=== PATIENT | male | born 1980 | race Hispanic/Latino ===

== ENCOUNTER 2023-05-24 14:39 | Inpatient (IN) | payer SELFPAY ==
[2023-05-24] MEDS ORDERED: Sodium Bicarbonate 150 MEQ in Dextrose 5% in Water 1,000 ML IV SCH (15:30)
[2023-05-24 15:32] LABS: Hemoglobin 14.6 g/dL (13.5-17.5); Mean Corpuscular HGB CONC 34.8 g/dL (32.0-36.0); Mean Corpuscular Hemoglobin 33.6 pg (27.0-33.0); Mean Corpuscular Volume 96.8 fl (81.2-95.1); Mean Platelet Volume 10.4 fl (7.4-10.4); Platelet Count 347 10x3/uL (150-450); RBC Distribution Width 13.1 % (11.5-14.5); Red Blood Cell (RBC) Count 4.34 10x6/uL (4.32-5.72); White Blood Cell (WBC) Count 30.4 10x3/uL (3.5-10.5)
[2023-05-24 15:35] LABS: Actual Bicarbonate (HCO3v) 3.4 mEq/L (22-28); Base Excess -31.7 mEq/L (-2 - +2); Calcium, Ionized (venous) 1.29 mmol/L (1.16-1.32); Chloride (VBG) 104 mmol/L (98-106); Hematocrit-VBG 45 % (42.0-52.0); Hemoglobin (Hb) 15.3 g/dL (13.2-17.3); Potassium (VBG) 1.84 mmol/L (3.70-5.30); Puncture Site Other Site; Sodium 136 mmol/L (133-146); pH (venous) 6.761 (7.32-7.43)
[2023-05-24 15:45] LABS: ALT (SGPT) 177 U/L (8-55); AST (SGOT) 181 U/L (5-34); Albumin 3.7 g/dL (3.5-5.0); Alkaline Phosphatase 185 U/L (40-110); BUN (Urea Nitrogen) 18 mg/dL (8.9-20.6); Bilirubin, Total 0.5 mg/dL (0.2-1.2); Calc. Creatinine Clearance 0 mL/min (70-130); Calcium 8.1 mg/dL (7.8-10.44); Chloride 103 mmol/L (98-107); Estimated GFR 71; Globulin 4.4 g/dL (2.4-3.5); Lipase 989 U/L (8-78); Magnesium 2.2 mg/dL (1.6-2.6); Protein, Total 8.1 g/dL (6.0-8.3); Sodium 129 mmol/L (136-145)
[2023-05-24] MEDS ORDERED: Potassium Chloride 20 MEQ/100 ML PREMIX BAG ONE ×2 (15:47→16:31)
[2023-05-24 15:55] LABS: Carbon Dioxide Less than 8 mmol/L (22-29); Glucose 500 mg/dL (70-105); Potassium 1.8 mmol/L (3.5-5.1)
[2023-05-24 16:00] LABS: Band 14 % (5-11); Lymphocytes 5 % (21-51); Monocytes 19 % (0-10)
[2023-05-24 16:03] LABS: Anisocytosis SLIGHT = 6-15 cells (100X) (0-5/hpf); Neutrophil 62 % (42-75)
[2023-05-24 16:07] LABS: Platelet Adequacy Comment Appears Adequate; Toxic Granulation SLIGHT; Vacuoles SLIGHT
[2023-05-24 16:08] LABS: MDiff Complete? YES
[2023-05-24 16:21] LABS: Actual Bicarbonate (HCO3v) 4.4 mEq/L (22-28); Base Excess -29.9 mEq/L (-2 - +2); Calcium, Ionized (venous) 1.18 mmol/L (1.16-1.32); Chloride (VBG) 107 mmol/L (98-106); Hematocrit-VBG 42 % (42.0-52.0); Hemoglobin (Hb) 14.3 g/dL (13.2-17.3); Potassium (VBG) 1.63 mmol/L (3.70-5.30); Puncture Site Other Site; Sodium 135 mmol/L (133-146); pH (venous) 6.797 (7.32-7.43)
[2023-05-24] MEDS ORDERED: Magnesium 2 GM/50 ML BAG (IN WATER) ONE (16:32)
[2023-05-24 16:59] LABS: Actual Bicarbonate (HCO3a) 4.7 mEq/L (22-28); CO2 Tension 32.3 mmHg (35.0-45.0); Calcium, Ionized (arterial) 1.27 mmol/L (1.12-1.30); Carboxyhemoglobin (COHb) 0.3 gm% (0.0-3.0); Hematocrit-ABG 43 % (42.0-52.0); Hemoglobin (Hb) 14.6 g/dL (14.0-18.0); O2 Tension (PaO2), arterial 85.4 mmHg (80.0-100.0); Potassium - ABG Lab 1.85 mmol/L (3.70-5.30); Puncture Site Other Site; pH, Arterial 6.784 (7.35-7.45)
[2023-05-24] MEDS ORDERED: D5 1/2 NS w/20 mEq KCL 1,000 ML IV PRN (17:00)
[2023-05-24] MEDS ORDERED: Electrolyte Replacement Protocol 1 EACH IVPB ONE (17:00)
[2023-05-24] MEDS ORDERED: Dextrose 5 %-0.45 % NaCl 1,000 ML IV PRN (17:00)
[2023-05-24 17:01] LABS: ALV-art Gradient 23.955 mmHg (0-20)
[2023-05-24] MEDS ORDERED: Electrolyte Replacement Protocol 1 EACH IVPB PRN (17:49)
[2023-05-24] MEDS: Dexmedetomidine In 0.9 % NaCl 100 ML IVPB SCH (17:55)
[2023-05-24] MEDS ORDERED: Piperacillin/Tazobactam 3.375 GM in Sodium Chloride 0.9% 100 ML IVPB SCH (18:00)
[2023-05-24] MEDS ORDERED: Lorazepam 1 MG TAB PO PRN (18:10)
[2023-05-24] MEDS ORDERED: Lorazepam 2 MG/ML VIAL IM PRN (18:10)
[2023-05-24] MEDS: Potassium Chloride 20 MEQ, Admixture Fee 1 EACH in Lactated Ringer's 1,000 ML IV SCH ×2 (18:14→23:27)
[2023-05-24] MEDS ORDERED: Sodium Bicarbonate 100 MEQ in Dextrose 5% in Water 1,000 ML IV SCH (18:15)
[2023-05-24 18:17] LABS: Actual Bicarbonate (HCO3v) 4.4 mEq/L (22-28); Base Excess -30.5 mEq/L (-2 - +2); Calcium, Ionized (venous) 1.33 mmol/L (1.16-1.32); Chloride (VBG) 104 mmol/L (98-106); Hematocrit-VBG 42 % (42.0-52.0); Hemoglobin (Hb) 14.4 g/dL (13.2-17.3); Potassium (VBG) 1.74 mmol/L (3.70-5.30); Puncture Site Other Site; Sodium 136 mmol/L (133-146); pH (venous) 6.773 (7.32-7.43)
[2023-05-24 18:22] LABS: Amphetamine Not Detected (NotDetected); Barbiturates Screen Not Detected (NotDetected); Benzodiazepine Screen Not Detected (NotDetected); Cocaine Metabolite Screen Not Detected (NotDetected); Methadone Not Detected (NotDetected); Methamphetamine Not Detected (NotDetected); Opiate Screen Not Detected (NotDetected); Oxycodone Screen Not Detected (NotDetected); Phencyclidine (PCP) Not Detected (NotDetected); THC/Cannabinoid Screen Not Detected (NotDetected); Tricyclic Screen Not Detected (NotDetected)
[2023-05-24 18:25] LABS: BUN (Urea Nitrogen) 21 mg/dL (8.9-20.6); Calc. Creatinine Clearance 55 mL/min (70-130); Calcium 8.2 mg/dL (7.8-10.44); Chloride 104 mmol/L (98-107); Estimated GFR 58; Sodium 129 mmol/L (136-145)
[2023-05-24] MEDS ORDERED: Pantoprazole 40 MG VIAL IVP SCH (18:30)
[2023-05-24] MEDS: Lorazepam 1 MG TAB PO SCH (18:34)
[2023-05-24] MEDS: Potassium Bicarbonate/Cit Ac 20 MEQ TAB PER TUBE SCH ×2 (18:34→20:42)
[2023-05-24 18:58] LABS: INR-International Normal Ratio 1.1; PTT 43.2 sec (22.0-33.0); Prothrombin Time 11.4 sec (9.5-12.1)
[2023-05-24 19:05] LABS: Carbon Dioxide Less than 8 mmol/L (22-29); Glucose 612 mg/dL (70-105); Potassium 1.7 mmol/L (3.5-5.1)
[2023-05-24 19:44] LABS: Actual Bicarbonate (HCO3v) 4.8 mEq/L (22-28); Calcium, Ionized (venous) 1.31 mmol/L (1.16-1.32); Chloride (VBG) 104 mmol/L (98-106); Hematocrit-VBG 41 % (42.0-52.0); Potassium (VBG) 1.91 mmol/L (3.70-5.30); Puncture Site Other Site; RapidComm Collect By CBN; Sodium 135 mmol/L (133-146); pH (venous) 6.777 (7.32-7.43)
[2023-05-24 19:51] LABS: Hemoglobin A1c 11.6 % (4.0-6.0)
[2023-05-24 20:38] LABS: Actual Bicarbonate (HCO3v) 4.9 mEq/L (22-28); Base Excess -29.1 mEq/L (-2 - +2); Calcium, Ionized (venous) 1.33 mmol/L (1.16-1.32); Chloride (VBG) 104 mmol/L (98-106); Hematocrit-VBG 41 % (42.0-52.0); Hemoglobin (Hb) 13.8 g/dL (13.2-17.3); Potassium (VBG) 1.89 mmol/L (3.70-5.30); Puncture Site Other Site; Sodium 135 mmol/L (133-146); pH (venous) 6.811 (7.32-7.43)
[2023-05-24] MEDS: Heparin 5,000 UNITS/ML VIAL SC SCH (20:40)
[2023-05-24] MEDS: Pantoprazole 40 MG VIAL IVP SCH (20:42)
[2023-05-24] MEDS: Thiamine HCl 200 MG/2 ML VIAL SLOW IVP SCH (20:42)
[2023-05-24] MEDS: Potassium Chloride 20 MEQ in Premix Bag 1 BAG IVPB SCH ×3 (20:42→23:31)
[2023-05-24] MEDS ORDERED: Famotidine 40 MG/5 ML Oral Suspension PER TUBE SCH (21:00)
[2023-05-24] MEDS ORDERED: NOREPINEPHRINE 8 MG/250 ML-D5W 250 ML IVPB SCH (21:15)
[2023-05-24] MEDS ORDERED: Lactated Ringer's 1,000 ML IV SCH (21:15)
[2023-05-24] MEDS: chlordiazePOXIDE HCl 25 MG CAP PO SCH (21:39)
[2023-05-24 21:55] LABS: BUN (Urea Nitrogen) 30 mg/dL (8.9-20.6); Calc. Creatinine Clearance 41 mL/min (70-130); Calcium 7.8 mg/dL (7.8-10.44); Chloride 105 mmol/L (98-107); Estimated GFR 40; Magnesium 2.4 mg/dL (1.6-2.6); Sodium 128 mmol/L (136-145)
[2023-05-24 21:56] LABS: Phosphorus 1.5 mg/dL (2.3-4.7)
[2023-05-24 21:58] LABS: Carbon Dioxide Less than 8 mmol/L (22-29); Glucose 661 mg/dL (70-105); Potassium 2.1 mmol/L (3.5-5.1)
[2023-05-24] MEDS: Piperacillin/Tazobactam 3.375 GM in Sodium Chloride 0.9% 100 ML IVPB SCH (22:03)
[2023-05-24 22:08] LABS: Actual Bicarbonate (HCO3v) 4.3 mEq/L (22-28); Base Excess -27.9 mEq/L (-2 - +2); Calcium, Ionized (venous) 1.32 mmol/L (1.16-1.32); Chloride (VBG) 106 mmol/L (98-106); Hematocrit-VBG 39 % (42.0-52.0); Hemoglobin (Hb) 13.2 g/dL (13.2-17.3); Potassium (VBG) 2.56 mmol/L (3.70-5.30); Puncture Site Other Site; Sodium 133 mmol/L (133-146); pH (venous) 6.882 (7.32-7.43)
[2023-05-24] MEDS ORDERED: Magnesium 2 GM/50 ML(in water) 2 GM in Premix Bag 1 BAG IVPB SCH (22:15)
[2023-05-24 23:00] LABS: Actual Bicarbonate (HCO3v) 4.2 mEq/L (22-28); Base Excess -28.6 mEq/L (-2 - +2); Calcium, Ionized (venous) 1.38 mmol/L (1.16-1.32); Chloride (VBG) 106 mmol/L (98-106); Hematocrit-VBG 39 % (42.0-52.0); Hemoglobin (Hb) 13.2 g/dL (13.2-17.3); Puncture Site Other Site; Sodium 135 mmol/L (133-146); pH (venous) 6.857 (7.32-7.43)
[2023-05-24 23:59] LABS: Actual Bicarbonate (HCO3v) 3.3 mEq/L (22-28); Base Excess -29.5 mEq/L (-2 - +2); Calcium, Ionized (venous) 1.41 mmol/L (1.16-1.32); Chloride (VBG) 106 mmol/L (98-106); Hematocrit-VBG 39 % (42.0-52.0); Hemoglobin (Hb) 13.3 g/dL (13.2-17.3); Potassium (VBG) 3.84 mmol/L (3.70-5.30); Puncture Site Other Site; Sodium 134 mmol/L (133-146)
[2023-05-24] MEDS ORDERED: PHOS-NAK 1 PKT PACK PER TUBE SCH (23:59)
[2023-05-24] MEDS ORDERED: Sodium Phosphate 15 MMOL in Sodium Chloride 0.9% 250 ML 250 ML IVPB SCH (23:59)
[2023-05-25] MEDS: Lorazepam 1 MG TAB PO SCH ×5 (00:28→23:18)
[2023-05-25] MEDS: Potassium Chloride 20 MEQ in Premix Bag 1 BAG IVPB SCH ×5 (00:31→13:52)
[2023-05-25] MEDS: INSULIN REGULAR IN 0.9 % NACL 100 UNITS in Premix Bag 1 BAG IVPB SCH ×2 (00:36→09:48)
[2023-05-25 01:46] LABS: Actual Bicarbonate (HCO3v) 4.2 mEq/L (22-28); Base Excess -27.8 mEq/L (-2 - +2); Calcium, Ionized (venous) 1.37 mmol/L (1.16-1.32); Chloride (VBG) 107 mmol/L (98-106); Hematocrit-VBG 38 % (42.0-52.0); Hemoglobin (Hb) 12.9 g/dL (13.2-17.3); Potassium (VBG) 3.11 mmol/L (3.70-5.30); Puncture Site Other Site; Sodium 133 mmol/L (133-146); pH (venous) 6.887 (7.32-7.43)
[2023-05-25 01:58] LABS: BUN (Urea Nitrogen) 36 mg/dL (8.9-20.6); Calc. Creatinine Clearance 32 mL/min (70-130); Chloride 107 mmol/L (98-107); Estimated GFR 31; Magnesium 3.1 mg/dL (1.6-2.6); Sodium 129 mmol/L (136-145)
[2023-05-25 02:02] LABS: Carbon Dioxide Less than 8 mmol/L (22-29); Glucose 723 mg/dL (70-105); Phosphorus Less than 1.0 mg/dL (2.3-4.7)
[2023-05-25] MEDS ORDERED: Potassium Chloride 40 MEQ in Premix Bag 1 BAG IVPB SCH (02:30)
[2023-05-25] MEDS: Lorazepam 2 MG/ML VIAL SLOW IVP PRN ×3 (02:53→20:41)
[2023-05-25] MEDS: chlordiazePOXIDE HCl 25 MG CAP PO SCH ×4 (03:23→21:38)
[2023-05-25 03:26] LABS: Actual Bicarbonate (HCO3a) 5.2 mEq/L (22-28); Base Excess (BEa) -24.4 mEq/L (-2.0 to +3.0); CO2 Tension 20.8 mmHg (35.0-45.0); Calcium, Ionized (arterial) 1.35 mmol/L (1.12-1.30); Carboxyhemoglobin (COHb) 0.4 gm% (0.0-3.0); Hematocrit-ABG 38 % (42.0-52.0); Hemoglobin (Hb) 12.8 g/dL (14.0-18.0); O2 Tension (PaO2), arterial 72.9 mmHg (80.0-100.0); Potassium - ABG Lab 2.65 mmol/L (3.70-5.30); Puncture Site RRA; pH, Arterial 7.013 (7.35-7.45)
[2023-05-25] MEDS: Potassium Chloride 40 MEQ in Premix Bag 1 BAG IVPB SCH ×2 (04:26→05:52)
[2023-05-25] MEDS ORDERED: Sodium Bicarbonate 150 MEQ in Sterile Water 1,000 ML IV SCH (04:30)
[2023-05-25 04:45] LABS: Actual Bicarbonate (HCO3v) 6.7 mEq/L (22-28); Calcium, Ionized (venous) 1.35 mmol/L (1.16-1.32); Chloride (VBG) 108 mmol/L (98-106); Hematocrit-VBG 39 % (42.0-52.0); Hemoglobin (Hb) 13.1 g/dL (13.2-17.3); Potassium (VBG) 2.84 mmol/L (3.70-5.30); Puncture Site Other Site; Sodium 134 mmol/L (133-146); pH (venous) 7.022 (7.32-7.43)
[2023-05-25] MEDS: Potassium Bicarbonate/Cit Ac 20 MEQ TAB PER TUBE SCH ×2 (05:22→09:35)
[2023-05-25] MEDS: Piperacillin/Tazobactam 3.375 GM in Sodium Chloride 0.9% 100 ML IVPB SCH ×3 (05:46→21:38)
[2023-05-25 05:56] LABS: BUN (Urea Nitrogen) 39 mg/dL (8.9-20.6); Calc. Creatinine Clearance 30 mL/min (70-130); Calcium 8.2 mg/dL (7.8-10.44); Chloride 111 mmol/L (98-107); Estimated GFR 28; Potassium 2.9 mmol/L (3.5-5.1); Sodium 132 mmol/L (136-145)
[2023-05-25 05:59] LABS: Carbon Dioxide Less than 8 mmol/L (22-29); Glucose 519 mg/dL (70-105)
[2023-05-25] MEDS ORDERED: Heparin 10,000 UNITS/ 10 ML VIAL SLOW IVP SCH (06:00)
[2023-05-25 06:36] LABS: Hep B Surf Ag Non-Reactive S/CO (NonReactive)
[2023-05-25] MEDS ORDERED: Potassium Chloride 20 MEQ TAB PER TUBE SCH (06:45)
[2023-05-25 09:24] LABS: Actual Bicarbonate (HCO3v) 21.2 mEq/L (22-28); Base Excess -1.9 mEq/L (-2 - +2); Calcium, Ionized (venous) 1.07 mmol/L (1.16-1.32); Chloride (VBG) 104 mmol/L (98-106); Hematocrit-VBG 36 % (42.0-52.0); Hemoglobin (Hb) 12.1 g/dL (13.2-17.3); Potassium (VBG) 3.34 mmol/L (3.70-5.30); Puncture Site Other Site; Sodium 140 mmol/L (133-146); pH (venous) 7.452 (7.32-7.43)
[2023-05-25 09:31] LABS: Anion Gap 21 mmol/L (10-20); BUN (Urea Nitrogen) 23 mg/dL (8.9-20.6); Calc. Creatinine Clearance 48 mL/min (70-130); Calcium 7.7 mg/dL (7.8-10.44); Carbon Dioxide 18 mmol/L (22-29); Chloride 106 mmol/L (98-107); Estimated GFR 49; Glucose 157 mg/dL (70-105); Potassium 3.3 mmol/L (3.5-5.1); Sodium 142 mmol/L (136-145)
[2023-05-25] MEDS: Pantoprazole 40 MG VIAL IVP SCH ×2 (09:45→20:41)
[2023-05-25] MEDS: Folic Acid 1 MG TAB PER TUBE SCH (09:45)
[2023-05-25] MEDS: Multivit, Therapeutic 1 TAB PO SCH (09:45)
[2023-05-25] MEDS: Heparin 5,000 UNITS/ML VIAL SC SCH ×2 (09:45→20:41)
[2023-05-25] MEDS: Dexmedetomidine In 0.9 % NaCl 100 ML IVPB SCH ×2 (09:48→20:41)
[2023-05-25] MEDS ORDERED: D5 1/2 NS w/20 mEq KCL 1,000 ML IV SCH ×2 (10:30→14:45)
[2023-05-25 11:14] LABS: Lactic Acid 1.5 mmol/L (0.5-2.2); Prothrombin Time 10.3 sec (9.5-12.1)
[2023-05-25 11:41] LABS: ALT (SGPT) 130 U/L (8-55); AST (SGOT) 111 U/L (5-34); Albumin 2.8 g/dL (3.5-5.0); Alkaline Phosphatase 141 U/L (40-110); Bilirubin, Direct 0.5 mg/dL (0.1-0.3); Bilirubin, Total 0.9 mg/dL (0.2-1.2); Protein, Total 5.5 g/dL (6.0-8.3)
[2023-05-25 11:58] LABS: Hematocrit 29.4 % (38.8-50.0); Hemoglobin 11.1 g/dL (13.5-17.5); Mean Corpuscular HGB CONC 37.8 g/dL (32.0-36.0); Mean Corpuscular Hemoglobin 32.7 pg (27.0-33.0); Mean Corpuscular Volume 86.7 fl (81.2-95.1); Mean Platelet Volume 10.2 fl (7.4-10.4); Platelet Count 188 10x3/uL (150-450); Red Blood Cell (RBC) Count 3.39 10x6/uL (4.32-5.72); White Blood Cell (WBC) Count 12.5 10x3/uL (3.5-10.5)
[2023-05-25 12:09] LABS: Band 21 % (5-11); Lymphocytes 1 % (21-51); Metamyelocyte 1 % (0-0); Monocytes 20 % (0-10); Neutrophil 57 % (42-75)
[2023-05-25 12:12] LABS: Platelet Adequacy Comment Appears Adequate; RBC Morph Comment Within Normal Limits
[2023-05-25 12:13] LABS: MDiff Complete? YES
[2023-05-25 12:49] LABS: Hep C IgG Ab Reflex HepC Qnt S/CO (NonReactive); Hep C Index 2.57 S/CO (0-0.79)
[2023-05-25 12:51] LABS: HBSAB Concentration Less than 8.00 mIU/mL; Hep B Core Total Ab Non-Reactive (NonReactive); Hep B Core Total Index 0.07 S/CO (0-0.79); Hep B Surf AB Non-Reactive (NonReactive)
[2023-05-25 13:12] LABS: Actual Bicarbonate (HCO3v) 23.8 mEq/L (22-28); Base Excess 1.5 mEq/L (-2 - +2); Calcium, Ionized (venous) 1.06 mmol/L (1.16-1.32); Chloride (VBG) 107 mmol/L (98-106); Hematocrit-VBG 34 % (42.0-52.0); Hemoglobin (Hb) 11.4 g/dL (13.2-17.3); Potassium (VBG) 4.04 mmol/L (3.70-5.30); Puncture Site Other Site; Sodium 140 mmol/L (133-146); pH (venous) 7.517 (7.32-7.43)
[2023-05-25 13:32] LABS: Anion Gap 19 mmol/L (10-20); BUN (Urea Nitrogen) 27 mg/dL (8.9-20.6); Calc. Creatinine Clearance 41 mL/min (70-130); Calcium 7.9 mg/dL (7.8-10.44); Carbon Dioxide 19 mmol/L (22-29); Chloride 106 mmol/L (98-107); Estimated GFR 40; Glucose 181 mg/dL (70-105); Magnesium 2.2 mg/dL (1.6-2.6); Sodium 140 mmol/L (136-145)
[2023-05-25 13:47] LABS: #Monocytes 2.5 10x3/uL (0.0-1.1); #Neutrophils 7.6 10x3/uL (1.5-8.4); %Basophils 0.4 % (0.0-2.0); %Eosinophils 0.4 % (0.0-6.0); %Lymphocytes 4.9 % (18.0-47.0); %Monocytes 22.9 % (0.0-10.0); %Neutrophils 70.4 % (40.0-75.0); Hematocrit 28.1 % (38.8-50.0); Hemoglobin 10.5 g/dL (13.5-17.5); Mean Corpuscular HGB CONC 37.4 g/dL (32.0-36.0); Mean Corpuscular Hemoglobin 32.5 pg (27.0-33.0); Platelet Count 148 10x3/uL (150-450); Red Blood Cell (RBC) Count 3.23 10x6/uL (4.32-5.72); White Blood Cell (WBC) Count 10.8 10x3/uL (3.5-10.5)
[2023-05-25] MEDS: Dextrose 50% Abboject 50 ML SYRINGE SLOW IVP PRN ×2 (15:59→21:16)
[2023-05-25 17:12] LABS: Actual Bicarbonate (HCO3v) 23.1 mEq/L (22-28); Base Excess 1.1 mEq/L (-2 - +2); Calcium, Ionized (venous) 1.09 mmol/L (1.16-1.32); Chloride (VBG) 107 mmol/L (98-106); Hematocrit-VBG 33 % (42.0-52.0); Hemoglobin (Hb) 11.3 g/dL (13.2-17.3); Potassium (VBG) 3.71 mmol/L (3.70-5.30); Puncture Site Other Site; Sodium 140 mmol/L (133-146); pH (venous) 7.525 (7.32-7.43)
[2023-05-25 17:35] LABS: Anion Gap 20 mmol/L (10-20); BUN (Urea Nitrogen) 31 mg/dL (8.9-20.6); Calc. Creatinine Clearance 37 mL/min (70-130); Calcium 8.1 mg/dL (7.8-10.44); Carbon Dioxide 17 mmol/L (22-29); Chloride 106 mmol/L (98-107); Estimated GFR 36; Glucose 264 mg/dL (70-105); Potassium 3.7 mmol/L (3.5-5.1); Sodium 139 mmol/L (136-145)
[2023-05-25] MEDS: Acetaminophen 650 MG/20.3 ML UDCUP PER TUBE PRN (18:08)
[2023-05-25] MEDS ORDERED: Lorazepam 1 MG TAB PO PRN (18:10)
[2023-05-25] MEDS: Thiamine HCl 200 MG/2 ML VIAL SLOW IVP SCH (20:41)
[2023-05-25 21:17] LABS: Actual Bicarbonate (HCO3v) 22.8 mEq/L (22-28); Base Excess 0.9 mEq/L (-2 - +2); Calcium, Ionized (venous) 1.17 mmol/L (1.16-1.32); Chloride (VBG) 109 mmol/L (98-106); Hematocrit-VBG 32 % (42.0-52.0); Hemoglobin (Hb) 10.8 g/dL (13.2-17.3); Potassium (VBG) 3.15 mmol/L (3.70-5.30); Puncture Site Other Site; Sodium 143 mmol/L (133-146); pH (venous) 7.533 (7.32-7.43)
[2023-05-25 22:32] LABS: Anion Gap 17 mmol/L (10-20); BUN (Urea Nitrogen) 33 mg/dL (8.9-20.6); Calc. Creatinine Clearance 36 mL/min (70-130); Calcium 8.1 mg/dL (7.8-10.44); Carbon Dioxide 19 mmol/L (22-29); Chloride 110 mmol/L (98-107); Estimated GFR 35; Glucose 198 mg/dL (70-105); Potassium 3.1 mmol/L (3.5-5.1); Sodium 143 mmol/L (136-145)
[2023-05-25] MEDS ORDERED: Potassium Chloride 20 MEQ in Premix Bag 1 BAG IVPB SCH (23:00)
[2023-05-26] MEDS: Sodium Chloride 0.45% 1,000 ML IV SCH ×3 (00:27→21:32)
[2023-05-26] MEDS ORDERED: Dextrose 50% Abboject 50 ML SYRINGE IVP PRN (00:30)
[2023-05-26] MEDS ORDERED: Potassium Chloride 20 MEQ in Premix Bag 1 BAG IVPB SCH (00:30)
[2023-05-26] MEDS ORDERED: Potassium Bicarbonate/Cit Ac 20 MEQ TAB PER TUBE SCH (00:30)
[2023-05-26] MEDS ORDERED: Lantus 1000 UNITS/10 ML VIAL SC SCH ×2 (00:30→21:00)
[2023-05-26] MEDS ORDERED: Glucagon 1 MG/ML KIT IM PRN (00:30)
[2023-05-26] MEDS ORDERED: Dextrose 5% in Water 1,000 ML IV PRN (00:30)
[2023-05-26] MEDS: Lorazepam 2 MG/ML VIAL SLOW IVP PRN ×2 (01:49→23:06)
[2023-05-26] MEDS: HumaLOG 300 UNITS/3 ML VIAL SC PRN ×7 (02:12→23:51)
[2023-05-26] MEDS: Dexmedetomidine In 0.9 % NaCl 100 ML IVPB SCH ×2 (02:57→21:32)
[2023-05-26] MEDS: Acetaminophen 650 MG/20.3 ML UDCUP PER TUBE PRN (04:10)
[2023-05-26] MEDS: chlordiazePOXIDE HCl 25 MG CAP PO SCH ×2 (04:10→20:04)
[2023-05-26 04:19] LABS: Hematocrit 28.6 % (38.8-50.0); Hemoglobin 10.6 g/dL (13.5-17.5); Mean Corpuscular HGB CONC 37.1 g/dL (32.0-36.0); Mean Corpuscular Hemoglobin 32.4 pg (27.0-33.0); Mean Corpuscular Volume 87.5 fl (81.2-95.1); Mean Platelet Volume 10.5 fl (7.4-10.4); Platelet Count 138 10x3/uL (150-450); Red Blood Cell (RBC) Count 3.27 10x6/uL (4.32-5.72)
[2023-05-26 04:27] LABS: Anion Gap 18 mmol/L (10-20); BUN (Urea Nitrogen) 36 mg/dL (8.9-20.6); Calc. Creatinine Clearance 34 mL/min (70-130); Calcium 8.2 mg/dL (7.8-10.44); Carbon Dioxide 17 mmol/L (22-29); Chloride 110 mmol/L (98-107); Estimated GFR 33; Glucose 238 mg/dL (70-105); Potassium 3.9 mmol/L (3.5-5.1); Sodium 141 mmol/L (136-145)
[2023-05-26 04:28] LABS: Magnesium 2.4 mg/dL (1.6-2.6)
[2023-05-26 04:32] LABS: Phosphorus Less than 1.0 mg/dL (2.3-4.7)
[2023-05-26 05:03] LABS: MDiff Complete? YES
[2023-05-26 05:07] LABS: Band 20 % (5-11); Lymphocytes 11 % (21-51); Monocytes 19 % (0-10); Neutrophil 49 % (42-75); Reactive Lymphocytes 1 % (0-10)
[2023-05-26 05:12] LABS: Macrocytosis SLIGHT = 6-15 cells (100X) (0-5/hpf)
[2023-05-26 05:13] LABS: Platelet Adequacy Comment Appears Decreased
[2023-05-26] MEDS ORDERED: Sodium Phosphate 30 MMOL in Sodium Chloride 0.9% 250 ML 250 ML IVPB SCH (05:30)
[2023-05-26] MEDS: Piperacillin/Tazobactam 3.375 GM in Sodium Chloride 0.9% 100 ML IVPB SCH ×3 (05:35→21:32)
[2023-05-26] MEDS: Lorazepam 1 MG TAB PO SCH ×2 (05:36→14:28)
[2023-05-26] MEDS: Pantoprazole 40 MG VIAL IVP SCH ×2 (08:29→20:04)
[2023-05-26] MEDS: Multivit, Therapeutic 1 TAB PO SCH (08:29)
[2023-05-26] MEDS: Folic Acid 1 MG TAB PER TUBE SCH (08:29)
[2023-05-26] MEDS: Heparin 5,000 UNITS/ML VIAL SC SCH ×2 (08:29→20:03)
[2023-05-26 08:54] LABS: Actual Bicarbonate (HCO3v) 22.9 mEq/L (22-28); Base Excess 0.8 mEq/L (-2 - +2); Calcium, Ionized (venous) 1.05 mmol/L (1.16-1.32); Chloride (VBG) 112 mmol/L (98-106); Hematocrit-VBG 33 % (42.0-52.0); Hemoglobin (Hb) 11.2 g/dL (13.2-17.3); Potassium (VBG) 2.94 mmol/L (3.70-5.30); Puncture Site Other Site; Sodium 144 mmol/L (133-146)
[2023-05-26 09:38] LABS: SARS-CoV-2 NAA Rapid Test Not Detected (NotDetected)
[2023-05-26] MEDS ORDERED: VANCOMYCIN 1.25 GM/250 ML BAG 1.25 GM in Premix Bag 1 BAG IVPB SCH (10:00)
[2023-05-26] MEDS ORDERED: Ondansetron PF 4 MG/2 ML Vial IVP PRN (10:43)
[2023-05-26] MEDS ORDERED: Calcium Carbonate 500 MG ChewTAB PO PRN (10:43)
[2023-05-26] MEDS ORDERED: Senokot S 8.6-50 MG TAB PO PRN (10:43)
[2023-05-26] MEDS ORDERED: Ondansetron ODT 4 MG TAB PO PRN (10:43)
[2023-05-26] MEDS: Ipratropium/Albuterol 3 ML NEB NEB SCH ×2 (13:15→19:42)
[2023-05-26 13:16] LABS: Thyroid Stimulating Hormone 0.5885 uIU/mL (0.35-4.94)
[2023-05-26 14:12] LABS: Phosphorus 2.5 mg/dL (2.3-4.7)
[2023-05-26] MEDS ORDERED: Lorazepam 1 MG TAB PO PRN (18:10)
[2023-05-26] MEDS: Lorazepam 0.5 MG TAB PO SCH (18:35)
[2023-05-26] MEDS: Cyanocobalamin (Vitamin B-12) 1,000 MCG TAB PER TUBE SCH (20:03)
[2023-05-26] MEDS: Thiamine HCl 200 MG/2 ML VIAL SLOW IVP SCH (20:03)
[2023-05-26 20:11] LABS: Anion Gap 18 mmol/L (10-20); BUN (Urea Nitrogen) 40 mg/dL (8.9-20.6); Calc. Creatinine Clearance 37 mL/min (70-130); Calcium 7.3 mg/dL (7.8-10.44); Carbon Dioxide 16 mmol/L (22-29); Chloride 112 mmol/L (98-107); Estimated GFR 36; Glucose 291 mg/dL (70-105); Potassium 2.9 mmol/L (3.5-5.1); Sodium 143 mmol/L (136-145)
[2023-05-26 20:55] LABS: Phosphorus 2.9 mg/dL (2.3-4.7)
[2023-05-26] MEDS: Potassium Chloride 40 MEQ in Premix Bag 1 BAG IVPB SCH ×2 (21:00→22:53)
[2023-05-27] MEDS: Lorazepam 0.5 MG TAB PO SCH ×3 (00:41→12:08)
[2023-05-27] MEDS: Ipratropium/Albuterol 3 ML NEB NEB SCH ×4 (01:22→18:52)
[2023-05-27 04:19] LABS: #Basophils 0.1 10x3/uL (0.0-0.2); #Eosinphils 0.1 10x3/uL (0.0-0.5); #Monocytes 1.6 10x3/uL (0.0-1.1); #Neutrophils 4.9 10x3/uL (1.5-8.4); %Basophils 1.2 % (0.0-2.0); %Eosinophils 0.8 % (0.0-6.0); %Lymphocytes 17.4 % (18.0-47.0); %Monocytes 18.4 % (0.0-10.0); Hematocrit 29.2 % (38.8-50.0); Hemoglobin 10.9 g/dL (13.5-17.5); Mean Corpuscular HGB CONC 37.3 g/dL (32.0-36.0); Mean Corpuscular Hemoglobin 32.8 pg (27.0-33.0); Mean Platelet Volume 10.6 fl (7.4-10.4); Platelet Count 160 10x3/uL (150-450); RBC Distribution Width 12.3 % (11.5-14.5); Red Blood Cell (RBC) Count 3.32 10x6/uL (4.32-5.72); White Blood Cell (WBC) Count 8.5 10x3/uL (3.5-10.5)
[2023-05-27 04:39] LABS: ALT (SGPT) 78 U/L (8-55); AST (SGOT) 37 U/L (5-34); Albumin 2.5 g/dL (3.5-5.0); Alkaline Phosphatase 134 U/L (40-110); Bilirubin, Direct 0.4 mg/dL (0.1-0.3); Bilirubin, Total 1.1 mg/dL (0.2-1.2); Protein, Total 5.2 g/dL (6.0-8.3)
[2023-05-27 04:40] LABS: Anion Gap 14 mmol/L (10-20); BUN (Urea Nitrogen) 39 mg/dL (8.9-20.6); Calc. Creatinine Clearance 38 mL/min (70-130); Calcium 7.7 mg/dL (7.8-10.44); Carbon Dioxide 19 mmol/L (22-29); Chloride 117 mmol/L (98-107); Estimated GFR 36; Glucose 241 mg/dL (70-105); Magnesium 2.3 mg/dL (1.6-2.6); Sodium 147 mmol/L (136-145)
[2023-05-27 04:46] LABS: Lipase 213 U/L (8-78); Phosphorus 1.6 mg/dL (2.3-4.7)
[2023-05-27] MEDS: HumaLOG 300 UNITS/3 ML VIAL SC PRN ×5 (04:47→21:29)
[2023-05-27] MEDS ORDERED: Potassium Bicarbonate/Cit Ac 20 MEQ TAB PER TUBE SCH (05:15)
[2023-05-27] MEDS: Piperacillin/Tazobactam 3.375 GM in Sodium Chloride 0.9% 100 ML IVPB SCH ×3 (05:32→22:40)
[2023-05-27] MEDS ORDERED: Potassium Phosphate 15 MMOL in Sodium Chloride 0.9% 250 ML 250 ML IVPB SCH (06:00)
[2023-05-27] MEDS ORDERED: Electrolyte Replacement Protocol FS PRN (06:45)
[2023-05-27] MEDS: Heparin 5,000 UNITS/ML VIAL SC SCH ×2 (08:10→21:04)
[2023-05-27] MEDS: Multivit, Therapeutic 1 TAB PO SCH (08:11)
[2023-05-27] MEDS: Pantoprazole 40 MG VIAL IVP SCH ×2 (08:11→21:04)
[2023-05-27] MEDS: Thiamine 100 MG TAB PER TUBE SCH (08:11)
[2023-05-27] MEDS: Folic Acid 1 MG TAB PER TUBE SCH (08:11)
[2023-05-27] MEDS: chlordiazePOXIDE HCl 25 MG CAP PO SCH ×2 (08:11→21:00)
[2023-05-27] MEDS ORDERED: Sodium Phosphate 30 MMOL in Sodium Chloride 0.9% 250 ML 250 ML IVPB SCH (09:00)
[2023-05-27] MEDS ORDERED: Lantus 1000 UNITS/10 ML VIAL SC SCH (09:45)
[2023-05-27] MEDS: Dexmedetomidine In 0.9 % NaCl 100 ML IVPB SCH (12:08)
[2023-05-27] MEDS: Sodium Chloride 0.45% 1,000 ML IV SCH (13:05)
[2023-05-27 16:39] LABS: Anion Gap 15 mmol/L (10-20); BUN (Urea Nitrogen) 35 mg/dL (8.9-20.6); Calc. Creatinine Clearance 39 mL/min (70-130); Calcium 8.7 mg/dL (7.8-10.44); Carbon Dioxide 18 mmol/L (22-29); Chloride 119 mmol/L (98-107); Estimated GFR 38; Glucose 328 mg/dL (70-105); Phosphorus 1.9 mg/dL (2.3-4.7); Sodium 149 mmol/L (136-145)
[2023-05-27] MEDS: PHOS-NAK 1 PKT PACK PO SCH ×2 (16:59→21:02)
[2023-05-27] MEDS ORDERED: Potassium Bicarbonate/Cit Ac 20 MEQ TAB PO SCH (17:00)
[2023-05-27] MEDS ORDERED: Potassium Phosphate 15 MMOL in Sodium Chloride 0.9% 100 ML IVPB SCH (17:45)
[2023-05-27] MEDS ORDERED: Lorazepam 0.5 MG TAB PO PRN (18:10)
[2023-05-27] MEDS: Cyanocobalamin (Vitamin B-12) 1,000 MCG TAB PER TUBE SCH (21:00)
[2023-05-27] MEDS: Lantus 1000 UNITS/10 ML VIAL SC SCH (21:02)
[2023-05-28] MEDS: Ipratropium/Albuterol 3 ML NEB NEB SCH ×3 (00:52→13:35)
[2023-05-28] MEDS: HumaLOG 300 UNITS/3 ML VIAL SC PRN ×6 (01:21→20:54)
[2023-05-28] MEDS: Acetaminophen 650 MG/20.3 ML UDCUP PER TUBE PRN (01:36)
[2023-05-28] MEDS: Dexmedetomidine In 0.9 % NaCl 100 ML IVPB SCH ×2 (02:08→16:40)
[2023-05-28 03:32] LABS: #Basophils 0.1 10x3/uL (0.0-0.2); #Monocytes 1.6 10x3/uL (0.0-1.1); #Neutrophils 6.3 10x3/uL (1.5-8.4); %Basophils 1.4 % (0.0-2.0); %Eosinophils 0.2 % (0.0-6.0); %Lymphocytes 9.4 % (18.0-47.0); %Monocytes 17.3 % (0.0-10.0); %Neutrophils 66.8 % (40.0-75.0); Hematocrit 32.4 % (38.8-50.0); Hemoglobin 11.8 g/dL (13.5-17.5); Mean Corpuscular HGB CONC 36.4 g/dL (32.0-36.0); Mean Corpuscular Hemoglobin 32.7 pg (27.0-33.0); Mean Corpuscular Volume 89.8 fl (81.2-95.1); Mean Platelet Volume 10.7 fl (7.4-10.4); Platelet Count 211 10x3/uL (150-450); RBC Distribution Width 13.1 % (11.5-14.5); Red Blood Cell (RBC) Count 3.61 10x6/uL (4.32-5.72); White Blood Cell (WBC) Count 9.4 10x3/uL (3.5-10.5)
[2023-05-28 03:46] LABS: Magnesium 2.3 mg/dL (1.6-2.6)
[2023-05-28 03:49] LABS: ALT (SGPT) 58 U/L (8-55); AST (SGOT) 23 U/L (5-34); Albumin 2.9 g/dL (3.5-5.0); Alkaline Phosphatase 163 U/L (40-110); Anion Gap 15 mmol/L (10-20); BUN (Urea Nitrogen) 32 mg/dL (8.9-20.6); Bilirubin, Direct 0.4 mg/dL (0.1-0.3); Bilirubin, Total 0.9 mg/dL (0.2-1.2); Calc. Creatinine Clearance 38 mL/min (70-130); Carbon Dioxide 23 mmol/L (22-29); Chloride 116 mmol/L (98-107); Estimated GFR 36; Glucose 372 mg/dL (70-105); Lipase 437 U/L (8-78); Phosphorus 3.4 mg/dL (2.3-4.7); Potassium 2.8 mmol/L (3.5-5.1); Protein, Total 5.6 g/dL (6.0-8.3)
[2023-05-28 03:53] LABS: Sodium 151 mmol/L (136-145)
[2023-05-28] MEDS: Sodium Chloride 0.45% 1,000 ML IV SCH (05:17)
[2023-05-28] MEDS: Potassium Chloride 40 MEQ in Premix Bag 1 BAG IVPB SCH ×2 (05:55→07:58)
[2023-05-28] MEDS: Piperacillin/Tazobactam 3.375 GM in Sodium Chloride 0.9% 100 ML IVPB SCH ×3 (05:58→22:16)
[2023-05-28] MEDS: Multivit, Therapeutic 1 TAB PO SCH (08:02)
[2023-05-28] MEDS: chlordiazePOXIDE HCl 25 MG CAP PO SCH ×2 (08:02→20:36)
[2023-05-28] MEDS: Folic Acid 1 MG TAB PER TUBE SCH (08:02)
[2023-05-28] MEDS: Thiamine 100 MG TAB PER TUBE SCH (08:02)
[2023-05-28] MEDS: Heparin 5,000 UNITS/ML VIAL SC SCH ×2 (08:02→20:36)
[2023-05-28] MEDS: Pantoprazole 40 MG VIAL IVP SCH (08:02)
[2023-05-28] MEDS: Lantus 1000 UNITS/10 ML VIAL SC SCH (08:03)
[2023-05-28] MEDS: Dextrose 5% in Water 1,000 ML IV SCH ×2 (10:04→18:38)
[2023-05-28 10:15] LABS: Hep C PCR-Quant HCV Not Detected IU/mL (.)
[2023-05-28] MEDS ORDERED: Ipratropium/Albuterol 3 ML NEB NEB PRN (13:59)
[2023-05-28] MEDS ORDERED: Insulin NPH Human Isophane 100 UNITS/ML (10 ML VIAL) SC SCH ×2 (14:00→21:00)
[2023-05-28] MEDS: Cyanocobalamin (Vitamin B-12) 1,000 MCG TAB PER TUBE SCH (20:36)
[2023-05-29] MEDS: HumaLOG 300 UNITS/3 ML VIAL SC PRN ×4 (00:05→12:21)
[2023-05-29 03:44] LABS: ALT (SGPT) 42 U/L (8-55); AST (SGOT) 24 U/L (5-34); Albumin 2.9 g/dL (3.5-5.0); Alkaline Phosphatase 141 U/L (40-110); Anion Gap 15 mmol/L (10-20); BUN (Urea Nitrogen) 28 mg/dL (8.9-20.6); Bilirubin, Total 0.7 mg/dL (0.2-1.2); Calc. Creatinine Clearance 39 mL/min (70-130); Calcium 8.6 mg/dL (7.8-10.44); Carbon Dioxide 22 mmol/L (22-29); Chloride 110 mmol/L (98-107); Estimated GFR 38; Globulin 3.1 g/dL (2.4-3.5); Glucose 250 mg/dL (70-105); Phosphorus 3.4 mg/dL (2.3-4.7); Potassium 2.8 mmol/L (3.5-5.1); Sodium 144 mmol/L (136-145)
[2023-05-29 03:57] LABS: #Eosinphils 0.4 10x3/uL (0.0-0.5); #Monocytes 1.7 10x3/uL (0.0-1.1); #Neutrophils 6.8 10x3/uL (1.5-8.4); %Basophils 0.3 % (0.0-2.0); %Eosinophils 3.1 % (0.0-6.0); %Lymphocytes 17.7 % (18.0-47.0); %Monocytes 14.6 % (0.0-10.0); %Neutrophils 57.5 % (40.0-75.0); Band 11 % (5-11); Eosinophils 4 % (0-10); Hematocrit 32.9 % (38.8-50.0); Hemoglobin 11.7 g/dL (13.5-17.5); Lymphocytes 19 % (21-51); MDiff Complete? YES; Mean Corpuscular HGB CONC 35.6 g/dL (32.0-36.0); Mean Corpuscular Hemoglobin 33.1 pg (27.0-33.0); Mean Corpuscular Volume 93.2 fl (81.2-95.1); Mean Platelet Volume 10.9 fl (7.4-10.4); Metamyelocyte 3 % (0-0); Monocytes 9 % (0-10); Neutrophil 53 % (42-75); Nucleated RBC (Manual Ct) 1 % (0); Platelet Adequacy Comment Appears Adequate; Platelet Count 220 10x3/uL (150-450); RBC Distribution Width 13.8 % (11.5-14.5); Reactive Lymphocytes 1 % (0-10); Red Blood Cell (RBC) Count 3.53 10x6/uL (4.32-5.72); White Blood Cell (WBC) Count 11.8 10x3/uL (3.5-10.5)
[2023-05-29] MEDS: Potassium Chloride 40 MEQ in Premix Bag 1 BAG IVPB SCH ×2 (04:24→06:08)
[2023-05-29] MEDS ORDERED: Magnesium 2 GM/50 ML(in water) 2 GM in Premix Bag 1 BAG IVPB SCH (04:30)
[2023-05-29] MEDS: Piperacillin/Tazobactam 3.375 GM in Sodium Chloride 0.9% 100 ML IVPB SCH ×3 (06:08→22:55)
[2023-05-29] MEDS: Dextrose 5% in Water 1,000 ML IV SCH ×2 (06:08→16:29)
[2023-05-29 06:32] VITALS: BMI 21.6
[2023-05-29] MEDS ORDERED: Insulin NPH Human Isophane 100 UNITS/ML (10 ML VIAL) SC SCH (09:00)
[2023-05-29] MEDS: Thiamine 100 MG TAB PER TUBE SCH (09:16)
[2023-05-29] MEDS: Folic Acid 1 MG TAB PER TUBE SCH (09:16)
[2023-05-29] MEDS: Multivit, Therapeutic 1 TAB PO SCH (09:16)
[2023-05-29] MEDS: chlordiazePOXIDE HCl 25 MG CAP PO SCH (09:17)
[2023-05-29] MEDS: Heparin 5,000 UNITS/ML VIAL SC SCH ×2 (09:17→20:36)
[2023-05-29] MEDS: Pantoprazole 40 MG VIAL IVP SCH (09:18)
[2023-05-29] MEDS: Acetaminophen 650 MG/20.3 ML UDCUP PER TUBE PRN (09:28)
[2023-05-29 11:32] LABS: Potassium 3.2 mmol/L (3.5-5.1)
[2023-05-29] MEDS ORDERED: Potassium Bicarbonate/Cit Ac 20 MEQ TAB PO SCH ×2 (11:45→14:00)
[2023-05-29 15:20] LABS: Potassium 2.9 mmol/L (3.5-5.1)
[2023-05-29] MEDS ORDERED: Potassium Chloride 20 MEQ TAB PO SCH (19:00)
[2023-05-29] MEDS: Cyanocobalamin (Vitamin B-12) 1,000 MCG TAB PER TUBE SCH (20:36)
[2023-05-29] MEDS: Insulin NPH Human Isophane 100 UNITS/ML (10 ML VIAL) SC SCH (20:56)
[2023-05-30] MEDS: HumaLOG 300 UNITS/3 ML VIAL SC PRN ×2 (00:50→17:30)
[2023-05-30 04:27] LABS: Hematocrit 35.9 % (38.8-50.0); Hemoglobin 12.3 g/dL (13.5-17.5); Mean Corpuscular HGB CONC 34.3 g/dL (32.0-36.0); Mean Corpuscular Hemoglobin 32.5 pg (27.0-33.0); Mean Platelet Volume 10.6 fl (7.4-10.4); Platelet Count 276 10x3/uL (150-450); RBC Distribution Width 13.1 % (11.5-14.5); Red Blood Cell (RBC) Count 3.78 10x6/uL (4.32-5.72); White Blood Cell (WBC) Count 13.8 10x3/uL (3.5-10.5)
[2023-05-30 04:40] LABS: ALT (SGPT) 35 U/L (8-55); AST (SGOT) 38 U/L (5-34); Albumin 2.9 g/dL (3.5-5.0); Alkaline Phosphatase 130 U/L (40-110); Anion Gap 16 mmol/L (10-20); BUN (Urea Nitrogen) 25 mg/dL (8.9-20.6); Bilirubin, Total 0.8 mg/dL (0.2-1.2); Calc. Creatinine Clearance 38 mL/min (70-130); Calcium 8.8 mg/dL (7.8-10.44); Carbon Dioxide 22 mmol/L (22-29); Chloride 107 mmol/L (98-107); Estimated GFR 42; Globulin 3.2 g/dL (2.4-3.5); Glucose 122 mg/dL (70-105); Magnesium 2.4 mg/dL (1.6-2.6); Protein, Total 6.1 g/dL (6.0-8.3); Sodium 142 mmol/L (136-145)
[2023-05-30 04:52] LABS: MDiff Complete? YES
[2023-05-30 05:07] LABS: Platelet Adequacy Comment Appears Adequate; RBC Morph Comment Within Normal Limits
[2023-05-30 05:10] LABS: Band 11 % (5-11); Eosinophils 3 % (0-10); Lymphocytes 17 % (21-51); Monocytes 11 % (0-10); Neutrophil 58 % (42-75)
[2023-05-30 05:13] LABS: Phosphorus 3.3 mg/dL (2.3-4.7)
[2023-05-30] MEDS: Piperacillin/Tazobactam 3.375 GM in Sodium Chloride 0.9% 100 ML IVPB SCH ×3 (07:18→22:08)
[2023-05-30] MEDS: Dextrose 5% in Water 1,000 ML IV SCH ×3 (07:19→22:27)
[2023-05-30] MEDS ORDERED: Potassium Bicarbonate/Cit Ac 20 MEQ TAB PO SCH ×2 (08:00→11:00)
[2023-05-30] MEDS: Insulin NPH Human Isophane 100 UNITS/ML (10 ML VIAL) SC SCH ×2 (08:30→22:11)
[2023-05-30] MEDS: Heparin 5,000 UNITS/ML VIAL SC SCH ×2 (08:32→22:06)
[2023-05-30] MEDS: Folic Acid 1 MG TAB PER TUBE SCH (08:34)
[2023-05-30] MEDS: Thiamine 100 MG TAB PER TUBE SCH (08:34)
[2023-05-30] MEDS: Multivit, Therapeutic 1 TAB PO SCH (08:34)
[2023-05-30] MEDS: chlordiazePOXIDE HCl 25 MG CAP PO SCH (08:37)
[2023-05-30] MEDS: Pantoprazole 40 MG VIAL IVP SCH (08:39)
[2023-05-30] MEDS ORDERED: Insulin NPH Human Isophane 100 UNITS/ML (10 ML VIAL) SC SCH (11:00)
[2023-05-30] MEDS ORDERED: Acetaminophen 650 MG/20.3 ML UDCUP PO PRN (18:00)
[2023-05-30] MEDS ORDERED: Cyanocobalamin (Vitamin B-12) 1,000 MCG TAB PO SCH (21:00)
[2023-05-31 04:03] LABS: Hematocrit 33.4 % (38.8-50.0); Hemoglobin 11.3 g/dL (13.5-17.5); Mean Corpuscular HGB CONC 33.8 g/dL (32.0-36.0); Mean Corpuscular Hemoglobin 32.3 pg (27.0-33.0); Mean Corpuscular Volume 95.4 fl (81.2-95.1); Mean Platelet Volume 10.4 fl (7.4-10.4); Platelet Count 294 10x3/uL (150-450); RBC Distribution Width 12.8 % (11.5-14.5); White Blood Cell (WBC) Count 12.4 10x3/uL (3.5-10.5)
[2023-05-31 04:07] LABS: MDiff Complete? YES
[2023-05-31 04:10] LABS: ALT (SGPT) 48 U/L (8-55); AST (SGOT) 76 U/L (5-34); Albumin 2.9 g/dL (3.5-5.0); Alkaline Phosphatase 133 U/L (40-110); Anion Gap 16 mmol/L (10-20); BUN (Urea Nitrogen) 26 mg/dL (8.9-20.6); Bilirubin, Total 0.6 mg/dL (0.2-1.2); Calc. Creatinine Clearance 39 mL/min (70-130); Calcium 8.5 mg/dL (7.8-10.44); Carbon Dioxide 19 mmol/L (22-29); Chloride 108 mmol/L (98-107); Estimated GFR 43; Globulin 3.2 g/dL (2.4-3.5); Glucose 195 mg/dL (70-105); Potassium 3.7 mmol/L (3.5-5.1); Protein, Total 6.1 g/dL (6.0-8.3); Sodium 139 mmol/L (136-145)
[2023-05-31 04:31] LABS: Platelet Adequacy Comment Appears Adequate; RBC Morph Comment Within Normal Limits
[2023-05-31 04:33] LABS: Band 12 % (5-11); Eosinophils 5 % (0-10); Lymphocytes 18 % (21-51); Metamyelocyte 2 % (0-0); Monocytes 11 % (0-10); Neutrophil 52 % (42-75)
[2023-05-31] MEDS: Piperacillin/Tazobactam 3.375 GM in Sodium Chloride 0.9% 100 ML IVPB SCH ×2 (05:50→14:47)
[2023-05-31] MEDS ORDERED: Potassium Bicarbonate/Cit Ac 20 MEQ TAB PO SCH (08:00)
[2023-05-31] MEDS: Insulin NPH Human Isophane 100 UNITS/ML (10 ML VIAL) SC SCH ×2 (08:58→09:02)
[2023-05-31] MEDS: Heparin 5,000 UNITS/ML VIAL SC SCH ×2 (08:58→09:03)
[2023-05-31] MEDS: chlordiazePOXIDE HCl 25 MG CAP PO SCH (08:59)
[2023-05-31] MEDS: Multivit, Therapeutic 1 TAB PO SCH (08:59)
[2023-05-31] MEDS ORDERED: Folic Acid 1 MG TAB PO SCH (09:00)
[2023-05-31] MEDS ORDERED: Thiamine 100 MG TAB PO SCH (09:00)
[2023-05-31 12:17] VITALS: BP 103/64; TEMP 97.7
== END 2023-05-31 14:45 | disposition home or self-care (01) | DRG 871 ==
LOC: CSHERS 14:39 → CSHICU 15:20 → CSHTELE 05-29 16:36
PROVIDERS: ADMIT Hospitalist; ATTEND Family Medicine
PROC: 02HV33Z Insertion of Infusion Device into Superior Vena Cava, Percutaneous Approach (ICD-10-PCS; principal; 2023-05-24)
PROC: 3E04329 Introduction of Other Anti-infective into Central Vein, Percutaneous Approach (ICD-10-PCS; 2023-05-24)
PROC: 3E043XZ Introduction of Vasopressor into Central Vein, Percutaneous Approach (ICD-10-PCS; 2023-05-24)
PROC: 06HY33Z Insertion of Infusion Device into Lower Vein, Percutaneous Approach (ICD-10-PCS; 2023-05-25)
PROC: 4A133R1 Monitoring of Arterial Saturation, Peripheral, Percutaneous Approach (ICD-10-PCS; 2023-05-25)
DX: A41.9 Sepsis, unspecified organism (principal); E11.10 Type 2 diabetes mellitus with ketoacidosis without coma; K85.20 Alcohol induced acute pancreatitis without necrosis or infection; J69.0 Pneumonitis due to inhalation of food and vomit; G92.8 Other toxic encephalopathy; J18.9 Pneumonia, unspecified organism; N17.9 Acute kidney failure, unspecified; E87.1 Hypo-osmolality and hyponatremia; E87.3 Alkalosis; E44.0 Moderate protein-calorie malnutrition; F10.231 Alcohol dependence with withdrawal delirium; R65.20 Severe sepsis without septic shock; E87.6 Hypokalemia; E87.5 Hyperkalemia; K29.80 Duodenitis without bleeding; K70.10 Alcoholic hepatitis without ascites; N18.30 Chronic kidney disease, stage 3 unspecified; E11.22 Type 2 diabetes mellitus with diabetic chronic kidney disease; D63.1 Anemia in chronic kidney disease; E83.42 Hypomagnesemia; E83.39 Other disorders of phosphorus metabolism; E83.51 Hypocalcemia; Z79.4 Long term (current) use of insulin; Z79.899 Other long term (current) drug therapy; Z68.21 Body mass index [BMI] 21.0-21.9, adult; Z11.52 Encounter for screening for COVID-19
CPT/HCPCS: 36415; 36416; 36556; 36600; 71045; 71250; 74018; 74177; 80048; 80053; 80076; 80306; 82607; 82805; 83036; 83605; 83690; 83735; 84100; 84145; 84439; 84443; 85025; 85610; 86140; 86704; 87040; 87324; 87449; 87522; 90935; 93005; 93010; 94640; 94667; 94760; 94762; 96365; 96375; 96376; 99292; A4217; C9113; G0257; J1644; J1815; J2060; J2543; J3370; J3411; J3475; J3480; J3490; J7030; J7050; J7070; J7120; J7620; J7999